=== PATIENT | female | born 1975 | race Two or more races ===

== ENCOUNTER 2016-08-20 21:07 | Emergency (ER) | payer SELFPAY ==
[~2016-08-20] VITALS: Ht 167.6 cm; Wt 83.9 kg
[2016-08-20 22:35] LABS: BASO % 1 % (0-3); EOS % 1 % (0-3); HEMATOCRIT 35.7 % (36.0-47.0); HEMOGLOBIN 11.9 g/dL (12.0-15.5); LYMPH # 1.8 x10^3/uL (1.0-4.8); LYMPH % 29 % (24-48); MEAN CORPUSCULAR HEMOGLOBIN 28 pg (25-35); MEAN CORPUSCULAR HGB CONC 33 g/dL (31-37); MEAN CORPUSCULAR VOLUME 84 fL (79-100); MONO % 9 % (0-9); NEUT % 61 % (31-73); PLATELET COUNT 230 x10^3/uL (140-400); RED BLOOD COUNT 4.27 x10^6/uL (3.50-5.40); RED CELL DISTRIBUTION WIDTH 14.3 % (11.5-14.5); WHITE BLOOD COUNT 6.3 x10^3/uL (4.0-11.0)
[2016-08-20 22:57] LABS: CALCIUM 9.2 mg/dL (8.5-10.1); CREATININE 0.9 mg/dL (0.6-1.0); GFR 68.7; POTASSIUM 3.9 mmol/L (3.5-5.1)
[2016-08-20 23:00] LABS: ALBUMIN 3.8 g/dL (3.4-5.0); DIRECT BILIRUBIN 0.1 mg/dL (0.0-0.2); MAGNESIUM 2.2 mg/dL (1.8-2.4); TOTAL BILIRUBIN 0.1 mg/dL (0.2-1.0); TOTAL PROTEIN 8.2 g/dL (6.4-8.2)
[2016-08-20 23:09] LABS: CKMB MASS 1.3 ng/mL (0.0-3.6)
--- NOTE | 2016-08-20 23:34 | PHYS DOC ---
Past Medical History Past Medical History: Anemia, GERD, Hypertension, Other Additional Past Medical Histor: gastritis, ESOPHAGEAL STRICTURE Past Surgical History: , Tubal ligation Alcohol Use: Rarely Drug Use: None Adult General Chief Complaint Chief Complaint: DIZZY/LIGHT HEADED HPI HPI Patient is a 41 year old female who presents with multiple complaints. Patient has been checking her blood pressure multiple times at home today because of her symptoms. Her blood pressure has been running high, systolics in the 170s to 180s. The patient is "dizzy". She has had some discomfort mostly since about 5:30 this evening that is characterized as a tight pressure in her epigastric area that goes up through the middle of her chest into both sides of her neck. She's had this off and on for about a week. She's had this same pain in the past when she stated she needed to have her esophagus dilated. She had this done as an outpatient at the [facility] about 2 years ago. She also complains that she's been doing a lot of belching and her abdomen has felt bloated lately. She does take omeprazole for her stomach acid. Patient takes labetalol 100 mg twice a day for hypertension. She usually takes it every morning and every evening. This morning when she got up she forgot to take it and did not take her dose until about 1:00. By then, she had been checking her blood pressure multiple times and found it to be running high. She has not taken her second dose of the day. She's been treated for about 4-1/2 years for hypertension with this medication. Patient is primary care is through [facility]. She has talked to them about needing esophageal endoscopy and dilatation and she states that it will be "at least 8 months" until she can get this done. Patient is wanting "unknown " from the ED stating that she needs to have it done sooner. Review of Systems Review of Systems Constitutional: Denies fever or chills , complains of dizziness and generalized weakness HENT: Denies nasal congestion or sore throat [] Respiratory: Denies cough or shortness of breath [] Cardiovascular: As in history of present illness for chest discomfort that does not sound cardiac GI: As in history of present illness, some nausea, occasional spitting up of saliva and liquids, no vomiting : Denies dysuria or hematuria [] Musculoskeletal: Denies back pain or joint pain [] Integument: Denies rash or skin lesions [] Neurologic: Denies headache, focal weakness or sensory changes [] Allergies Allergies Allergies Coded Allergies Type Severity Reaction Last Updated Verified Penicillins Allergy Intermediate rash 04/17/15 Yes Sulfa (Sulfonamide Antibiotics) Allergy Intermediate 04/17/15 Yes Physical Exam Physical Exam Constitutional: Well developed, well nourished, no acute distress, non-toxic appearance. [] HENT: Normocephalic, atraumatic, bilateral external ears normal, oropharynx moist, no oral exudates, nose normal. [] Eyes: PERRLA, EOMI, conjunctiva normal, no discharge. [] Neck: Normal range of motion, no tenderness, supple, no stridor. [] Cardiovascular:Heart rate regular rhythm, no murmur [] Lungs & Thorax: Bilateral breath sounds clear to auscultation [] Abdomen: Bowel sounds normal, soft, no tenderness, no masses, no pulsatile masses. [] Skin: Warm, dry, no erythema, no rash. [] Back: No tenderness, no CVA tenderness. [] Extremities: No tenderness, no cyanosis, no clubbing, ROM intact, no edema. [] Neurologic: Alert and oriented X 3, normal motor function, normal sensory function, no focal deficits noted. [] Psychologic: Affect normal, judgement normal, mood normal. [] Current Patient Data Vital Signs Vital Signs Date Time Temp Pulse Resp B/P (MAP) Pulse Ox O2 Delivery O2 Flow Rate FiO2 08/21/16 00:30 92 18 145/91 (109) 98 Room Air 08/20/16 21:33 98.4 98.4 Lab Values Laboratory Tests Test 08/20/16 21:16 08/20/16 22:27 POC Urine HCG, Qualitative Hcg negative (Negative) White Blood Count 6.3 x10^3/uL (4.0-11.0) Red Blood Count 4.27 x10^6/uL (3.50-5.40) Hemoglobin 11.9 g/dL (12.0-15.5) L Hematocrit 35.7 % (36.0-47.0) L Mean Corpuscular Volume 84 fL (79-100) Mean Corpuscular Hemoglobin 28 pg (25-35) Mean Corpuscular Hemoglobin Concent 33 g/dL (31-37) Red Cell Distribution Width 14.3 % (11.5-14.5) Platelet Count 230 x10^3/uL (140-400) Neutrophils (%) (Auto) 61 % (31-73) Lymphocytes (%) (Auto) 29 % (24-48) Monocytes (%) (Auto) 9 % (0-9) Eosinophils (%) (Auto) 1 % (0-3) Basophils (%) (Auto) 1 % (0-3) Neutrophils # (Auto) 3.8 x10^3uL (1.8-7.7) Lymphocytes # (Auto) 1.8 x10^3/uL (1.0-4.8) Monocytes # (Auto) 0.6 x10^3/uL (0.0-1.1) Eosinophils # (Auto) 0.0 x10^3/uL (0.0-0.7) Basophils # (Auto) 0.0 x10^3/uL (0.0-0.2) Sodium Level 139 mmol/L (136-145) Potassium Level 3.9 mmol/L (3.5-5.1) Chloride Level 104 mmol/L (98-107) Carbon Dioxide Level 26 mmol/L (21-32) Anion Gap 9 (6-14) Blood Urea Nitrogen 13 mg/dL (7-20) Creatinine 0.9 mg/dL (0.6-1.0) Estimated GFR (Cockcroft-Gault) 68.7 Glucose Level 115 mg/dL (70-99) H Calcium Level 9.2 mg/dL (8.5-10.1) Magnesium Level 2.2 mg/dL (1.8-2.4) Total Bilirubin 0.1 mg/dL (0.2-1.0) L Direct Bilirubin 0.1 mg/dL (0.0-0.2) Aspartate Amino Transferase (AST) 18 U/L (15-37) Alanine Aminotransferase (ALT) 21 U/L (14-59) Alkaline Phosphatase 82 U/L (46-116) Creatine Kinase 240 U/L (26-192) H Creatine Kinase MB (Mass) 1.3 ng/mL (0.0-3.6) Creatine Kinase MB Relative Index 0.5 % (0-4) Troponin I Quantitative < 0.017 ng/mL (0.000-0.055) RX-[id number]-I-Type Natriuretic Peptide 23 pg/mL (0-124) Total Protein 8.2 g/dL (6.4-8.2) Albumin 3.8 g/dL (3.4-5.0) Lipase 181 U/L (73-393) Laboratory Tests 08/20/16 22:27 Laboratory Tests 08/20/16 22:27 EKG EKG 12-lead EKG read by me. Sinus rhythm. Heart rate 103. There are no acute ST or T wave changes indicative of ischemia or infarction. No STEMI. 4 [] Radiology/Procedures Radiology/Procedures [] Course & Med Decision Making Course & Med Decision Making Pertinent Labs and Imaging studies reviewed. (See chart for details) 41-year-old female presents with multiple complaints. It sounds like what really prompted her visit was some chest discomfort that she relates to esophagus discomfort, she has had esophageal dilatation in the past for this same symptom. She is having no difficulty swallowing or handling her secretions in the emergency department. Labs, EKG unremarkable. I don't believe her symptoms are cardiac. Her blood pressure is running a bit high but she did not take her morning dose of labetalol when it was due and has not had her second dose yet today. I had her go ahead and take her second dose of labetalol. I discussed with the patient and her my recommendation to contact her primary care clinic and let them know that she is more symptomatic and see if she can be bumped up for endoscopy. See instructions for plan. [] Dragon Disclaimer Dragon Disclaimer This electronic medical record was generated, in whole or in part, using a voice recognition dictation system. Departure Departure Impression: Primary Impression: Epigastric pain Additional Impression: Pain of esophagus Disposition: HOME, SELF-CARE Condition: STABLE Referrals: NO PCP (PCP) Patient Instructions: Coleman's Esophagus Additional Instructions: Call your doctor's office tomorrow, let them know that you're having more symptoms and see if you can be seen sooner for endoscopy and treatment of your esophagus. Avoid any large pieces of meat, be sure you are chewing her food and swallowing only small amounts at a time. Problem Qualifiers DEE DEE GIL MD Aug 20, 2016 23:34
[2016-08-21 00:30] VITALS: BP 145/91
--- NOTE | 2016-08-21 16:04 | EKG ---
[facility] [address] [place] [address] Test Date: 2016-08-20 Test Time: 21:29:05 Pat Name: JC CARTWRIGHT Department: Room: Gender: F Linen Tech: : 1975 Requested By: DEE DEE GIL Order Number: [id number] Reading MD: Measurements Intervals [place] Rate: 103 P: 32 KS: 130 QRS: 31 QRSD: 72 T: 8 QT: 332 QTc: 437 Interpretive Statements SINUS TACHYCARDIA OTHERWISE NORMAL ECG RI6.01 Unconfirmed report No previous ECG available for comparison
== END 2016-08-21 00:36 | disposition home or self-care (01) ==
LOC: ER 21:07
DX: R10.13 Epigastric pain (principal); K22.8 Other specified diseases of esophagus; R11.0 Nausea; K21.9 Gastro-esophageal reflux disease without esophagitis; I10 Essential (primary) hypertension; Z88.0 Allergy status to penicillin; Z98.51 Tubal ligation status; Z79.899 Other long term (current) drug therapy; Z88.2 Allergy status to sulfonamides
CPT/HCPCS: 36415; 80048; 80076; 81025; 82553; 83690; 83735; 83880; 84484; 85027; 93005; 99285-25

== ENCOUNTER 2016-10-05 08:48 | Day surgery (SDC) | payer OTHER ==
[~2016-10-05] VITALS: Ht 162.6 cm; Wt 83.6 kg
[~2016-10-05 08:48] MED LIST: HYDROmorphone 2 MG/ML VIAL IV PRN; IBUP200T43 PO; IV RINGERS,LACTATED 1000ML 1,000 ML IV SCH; LABE100T3 PO; LIDOCAINE 1% 1 ML SYRINGE. ID PRN; MOME17SP NS; MORPHINE SULFATE 2 MG/ML DISP.SYRIN. IV PRN; OMEP40CA5 PO; ONDANSETRON PF 4 MG/2 ML VIAL. IV PRN; PROCHLORPERAZINE 10 MG/2 ML VIAL. IV PRN; fentaNYL PF VIAL 100 MCG/2 ML VIAL IV PRN
[2016-10-05] MEDS ORDERED: BUPIVACAINE-EPI 0.25%-1:200000 MPF 30 ML VIAL. ONE (10:53)
[2016-10-05] MEDS ORDERED: MIDAZOLAM HCL/PF 2 MG/2 ML VIAL. ONE (10:59)
[2016-10-05] MEDS ORDERED: fentaNYL PF VIAL 100 MCG/2 ML VIAL ONE ×2 (10:59→12:57)
--- NOTE | 2016-10-05 12:25 | RAD ---
Exam performed: Ultrasound-guided needle localization of a right breast lump and diagnostic right mammogram. History: Suspicious mass in the right breast. Date of service: 10/05/16. Comparison: Outside screen mammograms and right breast ultrasound from 09/08/16 and 09/18/16. Discussion: The procedure was obtained the patient and informed consent was obtained. Preliminary scanning demonstrates a well-defined suspicious nodule at 3:00 position, 2 cm from the nipple. The part was prepped and draped in the usual stripe fashion. 5 cc of 1% lidocaine was infiltrated in the skin and deeper tissues. Thereafter a 5 cm Kopan's needle was advanced to the premarked site up to nodule under direct ultrasound guidance. The wire was deployed and the needle was removed. The wire was then secured to the skin surface. The patient tolerated the procedure well and no immediate complications were encountered. Impression: 1. Technically successful wire localization of a suspicious right breast nodule. Diagnostic mammogram will be obtained. End impression. Diagnostic right mammogram: CC and MLO views of the right breast are obtained. The localization wire tip is seen in the vicinity of the nodule as marked on the images. The patient was sent to the OR in satisfactory position. Impression: 1. Satisfactory placement of a localization wire for subsequent lumpectomy. BI-RADS 4. Suspicious findings
[2016-10-05] MEDS ORDERED: PHENYLEPHRINE in 0.9% NACL PF 1 MG/10 ML DISP.SYRIN. IV ONE (12:31)
[2016-10-05] MEDS ORDERED: ONDANSETRON PF 4 MG/2 ML VIAL. ONE (12:34)
[2016-10-05] MEDS ORDERED: PROPOFOL 20 ML IV ONE (12:34)
[2016-10-05] MEDS ORDERED: LIDOCAINE 2% PF Vial for OR 5 ML VIAL. ONE (12:34)
[2016-10-05] MEDS ORDERED: DEXAMETHASONE SOD PHOS 20 MG/5 ML VIAL. ONE (12:34)
--- NOTE | 2016-10-05 12:41 | PDOC4 ---
Operative Note Operative Note Date: 10/05/2016 Preoperative diagnosis: Right breast mass Postoperative diagnosis: Same Procedure: Needle localized right breast biopsy Surgeon: Martell Specimen: Right breast biopsy Dictation: Patient is a 41-year-old female recently had bilateral mammograms was found to have a abnormal mammogram of the right breast. Procedure of needle localized right breast biopsy was explained to the patient in detail was benefits were also discussed including bleeding and infection alternatives to this procedure also discussed with the patient seemed understanding gave both verbal and written consent to have the procedure performed. The operating room after her needle localization of the right breast placed in the supine position general anesthesia was initiated once patient was asleep her right breast was prepped and draped usual sterile fashion using ChloraPrep. Area around the needle on the breast was injected with quarter percent Marcaine with epinephrine and incision made with a 15 blade scalpel was carried down through the subtendinous tissue that try to dry hemostasis the biopsy was taken and 2 pieces the more superficial specimen contained the needle a deeper specimen was also taken. Hemostasis in the wound was deemed to be appropriate and the wound was closed in 2 layers deep layer running 3-0 Vicryl and the skin was approximate 4 septic Monocryl mass all Steri-Strips 4 x 4's Medipore tape were applied as dressing. Patient was awakened and extubated in the operative room taken to recovery in stable condition all sponge instrument counts listed as correct estimate blood loss 20 mL. RAFAEL ESCOBAR MD Oct 05, 2016 12:41
--- NOTE | 2016-10-05 12:42 | DISCH ---
DISCHARGE INSTRUCTIONS Condition on Discharge Condition on Discharge: Stable Activity After Discharge Activity Instructions for Disc: Avoid exertion Diet after Discharge Diet after Discharge: Regular Wound Incision Care Other wound/incision instructi: May shower in 24 hours Contacting the after DC Call your doctor for: If your condition worsens Follow-Up Follow up with: Dr Escobar in 2 weeks RAFAEL ESCOBAR MD Oct 05, 2016 12:42
[2016-10-05] MEDS ORDERED: SEVOFLURANE 31 TO 60 MINUTES. IH ONE (12:46)
[2016-10-05] MEDS ORDERED: OXYC-323 PO (12:52)
[2016-10-05] MEDS ORDERED: oxyCODONE/APAP 5/325 1 TAB TABLET PO ONE (13:15)
[2016-10-05 14:15] VITALS: BP 135/97
--- NOTE | 2016-10-05 14:52 | RAD ---
Exam performed: Tissue specimen radiograph. History: Lumpectomy specimen. Date of service: 10/05/14. Comparison: Preoperative diagnostic mammogram from earlier today. Findings and impression:: A tissue specimen radiograph was obtained which demonstrates the localization wire in the tissue specimen. A second tissue specimen was seen which does not contain the localization wire. The localized nodule is perhaps in the periphery of this specimen. Dr. Moura was notified of the findings.
== END 2016-10-05 14:42 | disposition home or self-care (01) ==
LOC: SURG 08:48
PROVIDERS: ATTEND Surgery
DX: N63 Unspecified lump in breast (principal); I10 Essential (primary) hypertension; E66.9 Obesity, unspecified; D64.9 Anemia, unspecified; Z88.0 Allergy status to penicillin; Z68.41 Body mass index [BMI] 40.0-44.9, adult; Z98.51 Tubal ligation status; Z88.2 Allergy status to sulfonamides
CPT/HCPCS: 19083; 19125; 76098; 76942; C1769; G0206; J1100; J1956; J2250; J2370; J2405; J2704; J3010; 77065; J2001

== ENCOUNTER → 2016-11-16 | Day surgery (SDC) | payer OTHER ==
[~2016-11-16] MED LIST changes: -LIDOCAINE 1% 1 ML SYRINGE. ID PRN; +LIDOCAINE 1% PF 2 ML VIAL. ID PRN; +LIDOCAINE 2% PF Vial for OR 5 ML VIAL. ONE; +MIDAZOLAM HCL/PF 2 MG/2 ML VIAL. IV PRN; +OXYC-323 PO; +PROPOFOL 40 ML IV ONE
[2016-11-16 11:49] VITALS: BP 144/86
--- NOTE | 2016-11-17 16:09 | PATHOLOGY ---
PATHOLOGY REPORT * * * * * * * * FINAL DIAGNOSIS: A. Small intestinal mucosa, "small bowel biopsy": - No obvious diagnostic changes. - There is no evidence of acute cryptitis, granulomas, adenomatous change, or malignancy. B. Gastric biopsy (biopsy gastritis): - Mild chronic reactive gastropathy. - The immunoperoxidase stains for Helicobacter pylori is negative. C. 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 - There is no evidence of dysplasia or malignancy. D. Squamous mucosa, "mid esophagus biopsy": - Mild esophagitis with reactive squamous mucosa. - There is no evidence of goblet cell metaplasia, dysplasia, or malignancy. E. Small intestinal mucosa, "terminal ileum biopsy": - No diagnostic changes. - There is no evidence of acute cryptitis, granulomas, adenomatous change, or malignancy. F. Colonic mucosa, "random colon biopsies": - No diagnostic changes. - There is no evidence of acute cryptitis, granulomas, adenomatous change, or malignancy. (SHA:; 11/17/2016) REPORT ELECTRONICALLY SIGNED BY: Shaggy Purdy M.D. DATE/TIME: 11/17/2016 16:09 * * * * * * * * GROSS PATHOLOGY: A. Received in formalin labeled "Monique Paez, small bowel biopsy," are 4 segments of weiner soft tissue measuring 1.5 x 0.3 x 0.3 cm in aggregate dimensions and ranging from 0.3 to 0.4 cm in maximum dimension. The specimen is submitted entirely in cassette A1. B. Received in formalin labeled "Monique Paez, BX gastric antrum," is a segment of weiner soft tissue measuring 0.5 cm in maximum dimension. The specimen is submitted entirely in cassette B1. C. Received in formalin labeled "Monique Paez, distal esophageal BX," is a segment of weiner soft tissue measuring 0.4 cm in maximum dimension. The specimen is submitted entirely in cassette C1. D. Received in formalin labeled "Monique Paez, mid esophagus BX," are 2 segments of weiner soft tissue measuring 0.7 x 0.2 x 0.2 cm in aggregate dimensions and ranging from 0.3 to 0.3 cm in maximum dimension. The specimen is submitted entirely in cassette E1. E. Received in formalin labeled "Monique Paez, terminal ileum BX," is a segment of weiner soft tissue measuring 0.3 cm in maximum dimension. The specimen is submitted entirely in cassette E1. F. Received in formalin labeled "anterior Philippe, random colon BX's," are 6 segments of weiner soft tissue measuring 1.5-1.1 x 0.2 cm in aggregate dimensions and ranging from 0.3 to 0.4 cm in maximum dimension. The specimen is submitted entirely in cassette F1. (TSD; 11/16/2016) INITIAL CPT CODE(S): A; 83219 B; 29797, 91813 C; 41936 D; 25803 E; 57192 F; 24554 Professional services [place] [facility] [place] [address] Technical services performed by [facility] at [address] [place] [address]. SPECIMEN(S) RECEIVED: A.Small bowel biopsy B.Biopsy gastric antrum C.Biopsy distal esophagus D.Mid esophageal biopsy E.Terminal ileum biopsy F.Random colon biopsy CLINICAL HISTORY: History of Coleman's, dysphagia, abdominal pain; f/u Coleman's PATIENT: MONIQUE PAEZ /AGE: 3 1975 (Age: 41) PATIENT #: [id number] ALT CASE #: SPECIMEN COLLECTION DATE: 11/16/2016 SPECIMEN RECEIVED DATE: 11/16/2016 [facility] - [address] [place] [address] - PHONE: [phone] * * * END OF REPORT * * *
== END | disposition home or self-care (01) ==
LOC: ENDOS 09:16
PROVIDERS: ATTEND Internal Medicine Gastroenterology
DX: Z12.11 Encounter for screening for malignant neoplasm of colon (principal); K64.0 First degree hemorrhoids; Z86.69 Personal history of other diseases of the nervous system and sense organs; I10 Essential (primary) hypertension; E66.9 Obesity, unspecified; Z98.51 Tubal ligation status; Z88.2 Allergy status to sulfonamides; Z88.0 Allergy status to penicillin
CPT/HCPCS: 43239; 43450; 45380; 88305; 88342; J2704; J2001

== ENCOUNTER → 2016-11-27 | Outpatient (CLI) | payer OTHER ==
[2016-11-16 11:49] VITALS: BP 144/86
[~2016-11-27] MED LIST changes: -HYDROmorphone 2 MG/ML VIAL IV PRN; -IV RINGERS,LACTATED 1000ML 1,000 ML IV SCH; -LIDOCAINE 1% PF 2 ML VIAL. ID PRN; -LIDOCAINE 2% PF Vial for OR 5 ML VIAL. ONE; -MIDAZOLAM HCL/PF 2 MG/2 ML VIAL. IV PRN; -MORPHINE SULFATE 2 MG/ML DISP.SYRIN. IV PRN; -ONDANSETRON PF 4 MG/2 ML VIAL. IV PRN; -PROCHLORPERAZINE 10 MG/2 ML VIAL. IV PRN; -PROPOFOL 40 ML IV ONE; -fentaNYL PF VIAL 100 MCG/2 ML VIAL IV PRN
--- NOTE | 2016-11-27 11:21 | RAD ---
INDICATION: Abdominal pain. COMPARISON: None. TECHNIQUE: Grayscale and color ultrasound images obtained through the abdomen. FINDINGS: Aorta/IVC: Partially visualized without gross aneurysm. Pancreas: Only partially seen secondary to overlying bowel gas obscuring. Liver: Mildly echogenic. Gallbladder: No definite stones or wall thickening. Common Bile Duct: Not dilated. Right Kidney: No hydronephrosis. IMPRESSION: No definite bile duct dilation. Liver is mildly echogenic. Nonspecific but can be seen with fatty infiltration.
== END | disposition home or self-care (01) ==
LOC: US 15:57
PROVIDERS: ATTEND Internal Medicine Gastroenterology
DX: K76.0 Fatty (change of) liver, not elsewhere classified (principal)
CPT/HCPCS: 76705

== ENCOUNTER → 2016-11-28 | Outpatient (CLI) | payer OTHER ==
[2016-11-16 11:49] VITALS: BP 144/86
[~2016-11-28] VITALS: Ht 157.5 cm; Wt 84.4 kg
[~2016-11-28] MED LIST changes: +SINCALIDE 1.69 MCG in IV NORMAL SALINE 50ML 30 ML IV ONE
--- NOTE | 2016-11-28 11:35 | RAD ---
Radionuclide hepatobiliary scan with gallbladder ejection fraction, 11/28/2016: History: Abdominal pain with nausea and vomiting Following IV injection of 5.5 mCi of technetium 99m Choletec there was prompt uptake of the radionuclide from the blood stream by the liver. Activity is present in the gallbladder and bile ducts at 15 minutes. Small bowel activity develops at 35 minutes. Additional imaging of the gallbladder was performed following IV injection of 1.7 mcg of cholecystokinin. The patient became nauseous and complained of pain following the cholecystokinin injection. The gallbladder ejection fraction was calculated at 32%. 30-50% is considered be the borderline low range. IMPRESSION: 1. No evidence of cystic duct or common bile duct obstruction. 2. The gallbladder ejection fraction is 32%.
== END | disposition home or self-care (01) ==
LOC: NM 08:00
PROVIDERS: ATTEND Internal Medicine Gastroenterology
DX: R10.11 Right upper quadrant pain (principal); R11.2 Nausea with vomiting, unspecified; I10 Essential (primary) hypertension
CPT/HCPCS: 78226; 96374; 96375; A9537; J2805

== ENCOUNTER 2017-04-06 18:42 | Emergency (ER) | payer OTHER ==
[2017-04-06 19:11] LABS: URINE HCG POC HCG NEGATIVE (Negative)
[2017-04-06 19:12] LABS: BILIRUBIN,URINE NEGATIVE (NEG); CLARITY,URINE CLEAR; COLOR,URINE YELLOW; GLUCOSE,URINE NEGATIVE (NEG); NITRITE,URINE NEGATIVE (NEG); PROTEIN,URINE NEGATIVE (NEG-TRACE); UROBILINOGEN,URINE 0.2 mg/dL (0.2 mg/dL)
[2017-04-06 19:14] LABS: BASO % 0 % (0-3); EOS % 0 % (0-3); HEMATOCRIT 28.7 % (36.0-47.0); HEMOGLOBIN 9.2 g/dL (12.0-15.5); LYMPH % 10 % (24-48); MEAN CORPUSCULAR HEMOGLOBIN 23 pg (25-35); MEAN CORPUSCULAR HGB CONC 32 g/dL (31-37); MEAN CORPUSCULAR VOLUME 71 fL (79-100); MONO # 0.1 x10^3/uL (0.0-1.1); MONO % 1 % (0-9); NEUT # 8.6 x10^3uL (1.8-7.7); NEUT % 88 % (31-73); PLATELET COUNT 265 x10^3/uL (140-400); RED BLOOD COUNT 4.06 x10^6/uL (3.50-5.40); RED CELL DISTRIBUTION WIDTH 21.6 % (11.5-14.5); WHITE BLOOD COUNT 9.7 x10^3/uL (4.0-11.0)
[2017-04-06] MEDS: HYDROcodone/APAP 5/325MG 1 TAB TABLET PO (19:17)
[2017-04-06] MEDS: ONDANSETRON PF 4 MG/2 ML VIAL. IV (19:17)
[2017-04-06] MEDS: KETOROLAC 30 MG/ML INJ. IV (19:17)
[2017-04-06] MEDS: IV NORMAL SALINE 1000ML BAG 1,000 ML IV ×2 (19:18→20:43)
[2017-04-06 19:21] LABS: BACTERIA,URINE FEW /HPF (0-FEW); RBC,URINE 0 /HPF (0-2); SQUAMOUS EPITHELIAL CELL,UR OCC /LPF
[2017-04-06 19:25] LABS: ANION GAP 11 (6-14); BLOOD UREA NITROGEN 13 mg/dL (7-20); BUN/CREATININE RATIO 12 (6-20); CALCIUM 8.9 mg/dL (8.5-10.1); CARBON DIOXIDE 24 mmol/L (21-32); CHLORIDE 103 mmol/L (98-107); CREATININE 1.1 mg/dL (0.6-1.0); GFR 54.5; GLUCOSE 103 mg/dL (70-99); SODIUM 138 mmol/L (136-145)
[2017-04-06] MEDS ORDERED: IOHEXOL 300 MG/ML 100ML VIAL. IV (19:30)
[2017-04-06] MEDS ORDERED: CONTRAST GIVEN MC (19:30)
[2017-04-06 19:31] LABS: ALBUMIN 3.5 g/dL (3.4-5.0); ALBUMIN/GLOBULIN RATIO 0.8 (1.0-1.7); ALK PHOS 93 U/L (46-116); ALT (SGPT) 25 U/L (14-59); AST (SGOT) 16 U/L (15-37); CREATINE KINASE 182 U/L (26-192); LIPASE 202 U/L (73-393); MAGNESIUM 1.6 mg/dL (1.8-2.4); TOTAL BILIRUBIN 0.1 mg/dL (0.2-1.0); TOTAL PROTEIN 7.9 g/dL (6.4-8.2)
[2017-04-06 19:35] LABS: INFLUENZA A PATIENT NEGATIVE (NEGATIVE); INFLUENZA B PATIENT NEGATIVE (NEGATIVE); OBC FLU VALID
[2017-04-06 19:37] LABS: ADD MAN DIFF? YES
[2017-04-06 20:37] LABS: % BANDS 3 % (0-9); % EOS 1 % (0-5); % LYMPHS 13 % (24-48); % MONOS 2 % (0-10); % SEGS 81 % (35-66)
[2017-04-06 20:39] LABS: ANISOCYTOSIS MOD; HYPOCHROMIA SLIGHT; MICROCYTOSIS SLIGHT; PLT ESTIMATE ADEQUATE (ADEQUATE)
[2017-04-06 21:04] LABS: LACTIC ACID 1.6 mmol/L (0.4-2.0)
[2017-04-06 21:05] LABS: THYROID STIM HORMONE (TSH) 1.064 uIU/mL (0.358-3.74)
== END 2017-04-06 23:22 | disposition home or self-care (01) ==
LOC: ER 18:42
DX: N39.0 Urinary tract infection, site not specified (principal); K21.9 Gastro-esophageal reflux disease without esophagitis; I10 Essential (primary) hypertension; Z88.2 Allergy status to sulfonamides; Z88.0 Allergy status to penicillin; Z98.51 Tubal ligation status; Z90.49 Acquired absence of other specified parts of digestive tract; Z88.1 Allergy status to other antibiotic agents
CPT/HCPCS: 36415; 74177; 76830; 76856; 80053; 81001; 81025; 82550; 83605; 83690; 83735; 84443; 85007; 85025; 87086; 87804; 87804-59; 93005; 96361; 96374; 96375; 99285-25; J1885; J2405; J7030

== ENCOUNTER 2017-10-02 08:34 | Emergency (ER) | payer SELFPAY ==
[~2017-10-02] VITALS: Ht 157.5 cm; Wt 83.5 kg
[~2017-10-02 08:34] MED LIST changes: +CIPR250T PO; +HYDR-971 PO; -IBUP200T43 PO; +IBUP200T44 PO; -LABE100T3 PO; +LABE100T5 PO; +ONDA4TAB10 PO; -SINCALIDE 1.69 MCG in IV NORMAL SALINE 50ML 30 ML IV ONE
[2017-10-02] MEDS ORDERED: IV NORMAL SALINE 1000ML BAG 1,000 ML IV SCH (08:50)
--- NOTE | 2017-10-02 08:55 | PHYS DOC ---
Past Medical History Past Medical History: Anemia, GERD, Hypertension, Other Additional Past Medical Histor: gastritis, ESOPHAGEAL STRICTURE Past Surgical History: , Tubal ligation Alcohol Use: Rarely Drug Use: None Adult General Chief Complaint Chief Complaint: ABDOMINAL PAIN HPI HPI Patient is a 42-year-old female who presents to the emergency department for evaluation. She states for the past 3 days, she has had intermittent left upper abdominal discomfort, along with some urinary frequency and dysuria. She has had subjective fevers, and has had nausea, but no vomiting. She denies any dizziness or lightheadedness. She has not had any diarrhea. She reports a mild headache, similar to prior headaches she has had in the past with minor illnesses. She denies any chest pain or shortness of breath, dizziness, lightheadedness, numbness, weakness. Eating does not affect her symptoms. Other and urination worsen her symptoms, there are no alleviating or exacerbating factors to her symptoms. Review of Systems Review of Systems Constitutional: Denies weakness or chills [] Eyes: Denies change in visual acuity, redness, or eye pain [] HENT: Denies nasal congestion or sore throat [] Respiratory: Denies cough or shortness of breath [] Cardiovascular: The patient denies any shortness of breath, chest pain, palpitations, or orthopnea [] GI: Denies vomiting, bloody stools or diarrhea [] : Denies dysuria or hematuria [] Musculoskeletal: Denies back pain or joint pain [] Integument: Denies rash or skin lesions [] Neurologic: Denies current headache, focal weakness or sensory changes [] Endocrine: Denies polyuria or polydipsia [] All other systems were reviewed and found to be within normal limits, except as documented in this note. Current Medications Current Medications Current Medications Medications (Trade) Dose Ordered Sig/Gamal Start Time Stop Time Status Last Admin Dose Admin Info (CONTRAST GIVEN -- Rx MONITORING) 1 each PRN DAILY PRN 10/02/17 10:30 10/04/17 10:29 Iohexol (Omnipaque 300 Mg/ml) 75 ml 1X ONCE 10/02/17 10:30 10/02/17 10:31 DC 10/02/17 10:48 75 ML Ketorolac Tromethamine (Toradol 30mg Vial) 30 mg 1X ONCE 10/02/17 09:00 10/02/17 09:01 DC 10/02/17 09:12 30 MG Sodium Chloride 1,000 ml @ 1,000 mls/hr Q1H 10/02/17 08:50 10/02/17 09:49 DC 10/02/17 09:12 1,000 MLS/HR Allergies Allergies Allergies Coded Allergies Type Severity Reaction Last Updated Verified Penicillins Allergy Intermediate WELTS/ITCHY 12/14/16 Yes Sulfa (Sulfonamide Antibiotics) Allergy Intermediate COULD NOT BREATH 12/14/16 Yes amoxicillin Allergy Intermediate 04/06/17 Yes Physical Exam Physical Exam PHYSICAL EXAM: CONSTITUTIONAL: Well developed, well nourished HEAD: normocephalic, atraumatic EENT: PERRL, EOMI. Conjunctivae normal color, sclerae non-icteric; moist mucous membranes. NECK: Supple, non-tender; no meningismus. LUNGS: Lungs CTA, breathing even and unlabored. Normal air movement. HEART: Regular rate and rhythm, no murmur CHEST: No deformity; non-tender ABDOMEN: The abdomen is soft, there is mild left mid and lower abdominal tenderness to palpation, without rebound or guarding. The left upper quadrant, epigastric and right upper quadrant, as well as the right lower quadrant, are all non-tender, no masses or bruits. EXTREM: Normal ROM; no deformity, no calf tenderness. Normal pulses palpable in all extremities. There is no pedal edema. SKIN: No rash; no diaphoresis NEURO: Alert; normal speech and cognition; CN's grossly intact; strength grossly intact without focal deficit. BACK: No CVA TTP. Current Patient Data Vital Signs Vital Signs Date Time Temp Pulse Resp B/P (MAP) Pulse Ox O2 Delivery O2 Flow Rate FiO2 10/02/17 10:39 88 18 145/80 (101) 99 Room Air 10/02/17 08:46 97.3 97.3 Lab Values Laboratory Tests Test 10/02/17 08:40 10/02/17 08:45 10/02/17 08:55 Urine Collection Type Unknown Urine Color Yellow Urine Clarity Clear Urine pH 5.5 Urine Specific [place] 1.015 Urine Protein Negative mg/dL (NEG-TRACE) Urine Glucose (UA) Negative mg/dL (NEG) Urine Ketones (Stick) Negative mg/dL (NEG) Urine Blood Negative (NEG) Urine Nitrite Negative (NEG) Urine Bilirubin Negative (NEG) Urine Urobilinogen Dipstick 0.2 mg/dL (0.2 mg/dL) Urine Leukocyte Esterase Negative (NEG) Urine RBC 0 /HPF (0-2) Urine WBC Occ /HPF (0-4) Urine Squamous Epithelial Cells Few /LPF Urine Bacteria 0 /HPF (0-FEW) Urine Mucus Mod /LPF POC Urine HCG, Qualitative Hcg negative (Negative) White Blood Count 6.9 x10^3/uL (4.0-11.0) Red Blood Count 4.47 x10^6/uL (3.50-5.40) Hemoglobin 10.7 g/dL (12.0-15.5) L Hematocrit 33.2 % (36.0-47.0) L Mean Corpuscular Volume 74 fL (79-100) L Mean Corpuscular Hemoglobin 24 pg (25-35) L Mean Corpuscular Hemoglobin Concent 32 g/dL (31-37) Red Cell Distribution Width 18.1 % (11.5-14.5) H Platelet Count 297 x10^3/uL (140-400) Neutrophils (%) (Auto) 62 % (31-73) Lymphocytes (%) (Auto) 26 % (24-48) Monocytes (%) (Auto) 10 % (0-9) H Eosinophils (%) (Auto) 1 % (0-3) Basophils (%) (Auto) 1 % (0-3) Neutrophils # (Auto) 4.3 x10^3uL (1.8-7.7) Lymphocytes # (Auto) 1.8 x10^3/uL (1.0-4.8) Monocytes # (Auto) 0.7 x10^3/uL (0.0-1.1) Eosinophils # (Auto) 0.1 x10^3/uL (0.0-0.7) Basophils # (Auto) 0.0 x10^3/uL (0.0-0.2) Sodium Level 133 mmol/L (136-145) L Potassium Level 4.1 mmol/L (3.5-5.1) Chloride Level 101 mmol/L (98-107) Carbon Dioxide Level 27 mmol/L (21-32) Anion Gap 5 (6-14) L Blood Urea Nitrogen 10 mg/dL (7-20) Creatinine 1.0 mg/dL (0.6-1.0) Estimated GFR (Cockcroft-Gault) 60.5 BUN/Creatinine Ratio 10 (6-20) Glucose Level 101 mg/dL (70-99) H Calcium Level 8.8 mg/dL (8.5-10.1) Total Bilirubin 0.4 mg/dL (0.2-1.0) Aspartate Amino Transferase (AST) 18 U/L (15-37) Alanine Aminotransferase (ALT) 28 U/L (14-59) Alkaline Phosphatase 88 U/L (46-116) Total Protein 8.5 g/dL (6.4-8.2) H Albumin 3.9 g/dL (3.4-5.0) Albumin/Globulin Ratio 0.8 (1.0-1.7) L Lipase 158 U/L (73-393) Laboratory Tests 10/02/17 08:55 Laboratory Tests 10/02/17 08:55 EKG EKG [Normal sinus rhythm with a normal rate, normal axis, normal intervals, there are no acute ischemic ST/T changes.] Radiology/Procedures Radiology/Procedures [PROCEDURE: CT ABD PELV W/ IV CONTRST ONLY CT ABD PELV W/ IV CONTRST ONLY dated 10/02/2017 10:12 AM Indication: Pain.LLQ ABD PAIN OMNI 300 75ML. Comparison: 04/06/2017 Technique: Contiguous axial imaging the abdomen and pelvis performed after the intravenous administration of 75 cc Omnipaque 300. One or more of the following individualized dose reduction techniques were utilized for this examination: 1. Automated exposure control 2. Adjustment of the mA and/or kV according to patient size 3. Use of iterative reconstruction technique Findings: Limited images of lung bases are clear. Heart size within normal limits. No pleural or pericardial effusion. Liver, spleen, pancreas, adrenal glands, kidneys are unremarkable. No hydronephrosis. Gallbladder surgically absent. Unopacified GI tract normal in caliber and contour. No focal bowel wall thickening. No inflammatory stranding in the mesentery. The appendix is normal in caliber. No ascites or lymphadenopathy. Abdominal aorta normal in caliber.There are a few calcified mesenteric lymph nodes, unchanged Images of pelvis show nondistended urinary bladder. Uterus and adnexa are unremarkable. No free fluid or lymphadenopathy. Bone windows show no acute findings. Mild multilevel spondylosis. There is grade 1 spondylolisthesis and bilateral spondylolysis at L4-L5. IMPRESSION: 1. No acute abnormality of abdomen or pelvis. Normal appendix. 2. Grade 1 spondylolisthesis and bilateral spondylolysis at L4-L5.] Course & Med Decision Making Course & Med Decision Making Pertinent Labs and Imaging studies reviewed. (See chart for details) []11:45 AM: The patient's condition remained stable. I discussed test results with the patient, the need for close follow-up with GI for further evaluation and return precautions. The patient will be started on a therapeutic trial of a PPI. Dragon Disclaimer Dragon Disclaimer This electronic medical record was generated, in whole or in part, using a voice recognition dictation system. Departure Departure Impression: Primary Impression: Upper abdominal pain Disposition: 01 HOME, SELF-CARE Condition: STABLE Referrals: VERA CRAFT DO (PCP) BRANDAN BURGOS MD Patient Instructions: Abdominal Pain, Gastrin Scripts Pantoprazole Sodium (PROTONIX) 20 Mg Tablet.dr 1 TAB PO DAILY, #30 TAB Prov: NANCI CHAPMAN MD 10/02/17 NANCI CHAPMAN MD Oct 02, 2017 08:55
[2017-10-02] MEDS ORDERED: KETOROLAC 30 MG/ML VIAL. IV ONE (09:00)
[2017-10-02 09:07] LABS: BILIRUBIN,URINE NEGATIVE (NEG); CLARITY,URINE CLEAR; COLOR,URINE YELLOW; NITRITE,URINE NEGATIVE (NEG); PH,URINE 5.5; PROTEIN,URINE NEGATIVE (NEG-TRACE); UROBILINOGEN,URINE 0.2 mg/dL (0.2 mg/dL)
[2017-10-02 09:12] LABS: BASO % 1 % (0-3); EOS # 0.1 x10^3/uL (0.0-0.7); EOS % 1 % (0-3); HEMATOCRIT 33.2 % (36.0-47.0); HEMOGLOBIN 10.7 g/dL (12.0-15.5); LYMPH # 1.8 x10^3/uL (1.0-4.8); LYMPH % 26 % (24-48); MEAN CORPUSCULAR HEMOGLOBIN 24 pg (25-35); MEAN CORPUSCULAR HGB CONC 32 g/dL (31-37); MEAN CORPUSCULAR VOLUME 74 fL (79-100); MONO # 0.7 x10^3/uL (0.0-1.1); MONO % 10 % (0-9); NEUT # 4.3 x10^3uL (1.8-7.7); NEUT % 62 % (31-73); PLATELET COUNT 297 x10^3/uL (140-400); RED BLOOD COUNT 4.47 x10^6/uL (3.50-5.40); RED CELL DISTRIBUTION WIDTH 18.1 % (11.5-14.5); WHITE BLOOD COUNT 6.9 x10^3/uL (4.0-11.0)
[2017-10-02 09:16] LABS: SQUAMOUS EPITHELIAL CELL,UR FEW /LPF; WBC,URINE OCC /HPF (0-4)
[2017-10-02 09:17] LABS: BACTERIA,URINE 0 /HPF (0-FEW); RBC,URINE 0 /HPF (0-2)
[2017-10-02 09:25] LABS: CALCIUM 8.8 mg/dL (8.5-10.1); GFR 60.5; POTASSIUM 4.1 mmol/L (3.5-5.1)
[2017-10-02 09:28] LABS: ALBUMIN 3.9 g/dL (3.4-5.0); ALBUMIN/GLOBULIN RATIO 0.8 (1.0-1.7); TOTAL BILIRUBIN 0.4 mg/dL (0.2-1.0); TOTAL PROTEIN 8.5 g/dL (6.4-8.2)
[2017-10-02] MEDS ORDERED: IOHEXOL 300 MG/ML 100ML VIAL. IV ONE (10:30)
[2017-10-02] MEDS ORDERED: CONTRAST GIVEN. MC PRN (10:30)
--- NOTE | 2017-10-02 11:15 | RAD ---
CT ABD PELV W/ IV CONTRST ONLY dated 10/02/2017 10:12 AM Indication: Pain.LLQ ABD PAIN OMNI 300 75ML. Comparison: 04/06/2017 Technique: Contiguous axial imaging the abdomen and pelvis performed after the intravenous administration of 75 cc Omnipaque 300. One or more of the following individualized dose reduction techniques were utilized for this examination: 1. Automated exposure control 2. Adjustment of the mA and/or kV according to patient size 3. Use of iterative reconstruction technique Findings: Limited images of lung bases are clear. Heart size within normal limits. No pleural or pericardial effusion. Liver, spleen, pancreas, adrenal glands, kidneys are unremarkable. No hydronephrosis. Gallbladder surgically absent. Unopacified GI tract normal in caliber and contour. No focal bowel wall thickening. No inflammatory stranding in the mesentery. The appendix is normal in caliber. No ascites or lymphadenopathy. Abdominal aorta normal in caliber.There are a few calcified mesenteric lymph nodes, unchanged Images of pelvis show nondistended urinary bladder. Uterus and adnexa are unremarkable. No free fluid or lymphadenopathy. Bone windows show no acute findings. Mild multilevel spondylosis. There is grade 1 spondylolisthesis and bilateral spondylolysis at L4-L5. IMPRESSION: 1. No acute abnormality of abdomen or pelvis. Normal appendix. 2. Grade 1 spondylolisthesis and bilateral spondylolysis at L4-L5. Electronically signed by: Sonido Alvarado MD (10/02/2017 11:11 AM) [id number]
[2017-10-02] MEDS ORDERED: PANT20TA2 PO (11:50)
[2017-10-02 12:30] VITALS: BP 134/81
--- NOTE | 2017-10-02 13:09 | EKG ---
[facility] [address] [place] [address] Test Date: 2017-10-02 Test Time: 09:31:29 Pat Name: JC CARTWRIGHT Department: Room: Gender: F Service Order Taker: : 1975 Requested By: NANCI CHAPMAN Order Number: [id number] Reading MD: Santos Gary MD Measurements Intervals [place] Rate: 91 P: 114 [place]: 128 QRS: 45 QRSD: 76 T: 20 QT: 342 QTc: 427 Interpretive Statements SINUS RHYTHM Electronically Signed On 10-03-2017 12:22:44 CDT by Santos Gary MD
== END 2017-10-02 12:40 | disposition home or self-care (01) ==
LOC: ER 08:34
DX: R10.12 Left upper quadrant pain (principal); R10.32 Left lower quadrant pain; R10.13 Epigastric pain; R10.11 Right upper quadrant pain; R50.9 Fever, unspecified; R11.0 Nausea; R30.0 Dysuria; R35.0 Frequency of micturition; K21.9 Gastro-esophageal reflux disease without esophagitis; I10 Essential (primary) hypertension; Z98.890 Other specified postprocedural states; Z98.51 Tubal ligation status; Z88.0 Allergy status to penicillin; Z88.1 Allergy status to other antibiotic agents; Z88.2 Allergy status to sulfonamides
CPT/HCPCS: 36415; 74177; 80053; 81001; 81025; 83690; 85025; 93005; 96374; 99285; J1885; J7030; Q9967

== ENCOUNTER → 2019-07-17 | Outpatient (CLI) | payer OTHER ==
[2019-03-28 09:20] VITALS: BP 121/74
[~2019-07-17] MED LIST changes: +DEXL30CA PO; +FERR-36 PO; +HYDR-3164 PO; -HYDR-971 PO; +LABE200T4 PO; +LISI1TAB19 PO; +OMEP40CA45 PO; -OMEP40CA5 PO; -OXYC-323 PO; +OXYC1TAB15 PO; +PANT20TA2 PO; +PANT40TA77 PO
--- NOTE | 2019-07-18 17:07 | PATHOLOGY ---
[facility] Accession Number: [id number] . 01 Material submitted: . breast - RIGHT BREAST TISSUE 3:30 2CMFN. Modifiers: right . 01 Clinical history: . Right breast mass. . 02 Diagnosis: Breast tissue, right breast mass at 3:30 needle biopsies: - Fibroadenoma. LBQ 07/18/2019 1450 Local . 02 Comment: There is no evidence of malignancy. (JPM/db; 07/18/2019) . 02 Electronically signed: . Leobardo Whitman MD, Pathologist NPI- [id number] . 01 Gross description: . Received in formalin labeled "Monique Soto, right breast 330, 2 cm FN" is a 1.8 x 0.6 x 0.2 cm aggregate of yellow-weiner soft tissue cores. The specimen is submitted entirely in cassette A1-A3. The specimen is removed from the patient at 0952 and placed in formalin at 0955 on 07/17/2019. The specimen is removed from formalin at 2150 on 07/17/2019. ([facility] [place] 07/17/2019[place] [facility] 07/17/2019 1648 Local . 02 Pathologist provided ICD-10: D24.1 . 02 CPT . 030828 Specimen Comment: A courtesy copy of this report has been sent to [phone] Specimen Comment: Report sent to Performed at: 01 [facility] [address], [place] [id number] MD Rodger Duckworth MD Phone: [phone] Performed at: 02 [facility] [address] [place], [place] [id number] MD Leobardo Whitman MD Phone: [phone]
--- NOTE | 2019-07-18 17:43 | RAD ---
DATE: 07/17/2019 9:55 AM EXAM: DIGITAL DIAGNOSTIC RT, US GUID NDL PLACE/ASPI/BX HISTORY: 44-year-old woman with the mass in the medial right breast recommended for ultrasound-guided core needle biopsy. . COMPARISON: Right breast ultrasound of 07/03/2019 performed at diagnostic [facility], [place] TECHNIQUE AND FINDINGS: Breast Density: SCATTERED The breast parenchyma shows scattered fibroglandular densities. Breast parenchyma level B Informed consent was obtained and an appropriate procedural pause observed. Using standard sterile technique, ultrasound guidance and local anesthesia, multiple spring-loaded core biopsy samples of the 7 mm round hypoechoic mass in the medial right breast were obtained at the 3:30 o'clock position 2 cm from the nipple and a biopsy marker was deployed at the biopsy site. Stasis was assured with direct breast compression for 7 minutes and a postprocedure right diagnostic mammogram was obtained. Post procedure mammogram shows satisfactory deployment of an S shaped biopsy marker at the superficial surface of the round mass in the medial right breast. CC and ML views of the right breast were obtained with 2-D technique. IMPRESSION: Successful ultrasound-guided core needle biopsy of the round mass in the medial right breast and biopsy marker deployment. No apparent complications. Pathology results are pending. An addendum can be issued once pathology results become available.
== END ==
LOC: US 08:22 → MERGE 08:22
PROVIDERS: ATTEND Nurse Practitioner Family
DX: N63.10 Unspecified lump in the right breast, unspecified quadrant (principal); D24.1 Benign neoplasm of right breast
CPT/HCPCS: 19083; 77065; 88305; C1713; 19081; 76942

== ENCOUNTER 2020-07-10 14:50 | Emergency (ER) | payer SELFPAY ==
[~2020-07-10] VITALS: Ht 167.6 cm; Wt 86.6 kg
[~2020-07-10 14:50] MED LIST changes: -LISI1TAB19 PO; +LISI1TAB37 PO; -OMEP40CA45 PO; +OMEP40CA7 PO
[2020-07-10 15:20] VITALS: BP 111/77
[2020-07-10 15:34] LABS: BILIRUBIN,URINE NEGATIVE (NEG); CLARITY,URINE CLEAR; COLOR,URINE YELLOW; NITRITE,URINE NEGATIVE (NEG); PROTEIN,URINE NEGATIVE (NEG-TRACE); UROBILINOGEN,URINE 0.2 mg/dL (0.2 mg/dL)
[2020-07-10 15:49] LABS: BACTERIA,URINE 0 /HPF (0-FEW); RBC,URINE 0 /HPF (0-2); WBC,URINE 0 /HPF (0-4)
[2020-07-10] MEDS ORDERED: diazePAM 5 MG TABLET PO ONE (16:00)
[2020-07-10] MEDS ORDERED: KETOROLAC 30 MG/ML VIAL. IM ONE (16:00)
--- NOTE | 2020-07-10 16:41 | RAD ---
Single view pelvis and single view bilateral sacrum dated 07/10/2020. No comparison available. Clinical data indication: Pain. FINDINGS: AP view pelvis and oblique views of the sacrum shows normal bony alignment. No displaced fracture. Pe lvic ring is intact. Mild hypertrophic change of the bilateral SI joint and pubic symphysis. No perio stitis or bone destruction. There is mild spondylotic changes the lower lumbar spine. IMPRESSION: No acute findings. Electronically signed by: Sonido Alvarado MD (07/10/2020 4:38 PM) [id number]
[2020-07-10] MEDS ORDERED: CYCL5TAB PO (17:10)
--- NOTE | 2020-07-10 17:11 | PHYS DOC ---
Past Medical History Past Medical History: GERD, Hypertension, Other Additional Past Medical Histor: Coleman's esophagus Past Surgical History: , Other Additional Past Surgical Histo: biliary duct removal Smoking Status: Never Smoker Alcohol Use: None Drug Use: None General Adult EDM: Chief Complaint: BACK PAIN - NO INJURY HPI: HPI: 45-year-old female who denies any significant past medical history presents the ED with (patient consents to his/her/their knowledge and involvement in pts' medical care), complaints of bilateral lower back pain that started approximately 3 days ago, described as sharp, constant and nonradiating, cannot recall any specific event. Has not taken any medication for the pain. No prior h/o similar sxs. Denies any blunt trauma or increased heavy lifting. Not currently employed. Denies any history of trauma, history of IV drug use, history of cancer, history of sciatica, history of malignancy, history of immunocompromise state, neurologic complaints including saddle anesthesia, we akness or paresthesias, urinary retention, bowel or bladder incontinence, night pain, fever/chills/night sweats, unexplained weight loss, anticoagulants or coagulopathy, prolonged steroid use, older age, presence of contusions or abrasions. Review of Systems: Review of Systems: Constitutional: Denies fever or chills. [] Eyes: Denies change in visual acuity. [] HENT: Denies nasal congestion or sore throat. [] Respiratory: Denies cough or shortness of breath. [] Cardiovascular: Denies chest pain or edema. [] GI: Denies abdominal pain, nausea, vomiting, bloody stools or diarrhea. [] : Denies dysuria or vaginal bleeding Musculoskeletal: Denies saddle anesthesia or joint pain Integument: Denies rash or diaphoresis Neurologic: Denies headache, neck pain, focal weakness or sensory changes. [] Endocrine: Denies polyuria or polydipsia. [] Lymphatic: Denies swollen glands. [] Psychiatric: Denies depression or anxiety. [] Heart Score: C/O Chest Pain: No Risk Factors: Risk Factors: DM, Current or recent (<one month) smoker, HTN, HLP, family history of CAD, obesity. Risk Scores: Score 0 - 3: 2.5% MACE over next 6 weeks - Discharge Home Score 4 - 6: 20.3% MACE over next 6 weeks - Admit for Clinical Observation Score 7 - 10: 72.7% MACE over next 6 weeks - Early Invasive Strategies Current Medications: Current Medications Medications (Trade) Dose Ordered Sig/[facility] Start Time Stop Time Status Last Admin Dose Admin Diazepam (Valium) 5 mg 1X ONCE 07/10/20 16:00 07/10/20 16:01 DC 07/10/20 16:08 5 MG Ketorolac Tromethamine (Toradol 30mg Vial) 30 mg 1X ONCE 07/10/20 16:00 07/10/20 16:01 DC 07/10/20 16:08 30 MG Allergies: Allergies: Allergies Coded Allergies Type Severity Reaction Last Updated Verified Penicillins Allergy Intermediate WELTS/ITCHY 12/14/16 Yes Sulfa (Sulfonamide Antibiotics) Allergy Intermediate COULD NOT BREATH 12/14/16 Yes amoxicillin Allergy Intermediate 04/06/17 Yes Physical Exam: PE: Constitutional: Well developed, well nourished, no acute distress, non-toxic appearance. HENT: Normocephalic, atraumatic, Eyes: EOMI, conjunctiva normal, no discharge. Neck: Normal range of motion, supple, Cardiovascular: S1/2 present, regular rhythm Lungs & Thorax: Speaking in full sentences, bilateral equal chest rise, no tachypnea or increased work of breathing Abdomen: soft, no tenderness, Skin: Warm, dry, no erythema, no rash. [] Back: No midline step offs or tenderness, no CVA tenderness, pain located over both SI joints Extremities: No tenderness, no cyanosis, no lower extremity edema Neurologic: Alert and oriented X 3, normal motor function, normal sensory function, no focal deficits noted, antalgic gait Psychologic: Affect normal, judgement normal, mood normal. [] Current Patient Data: Labs: Laboratory Tests Test 07/10/20 15:15 07/10/20 15:33 Urine Collection Type Unknown Urine Color Yellow Urine Clarity Clear Urine pH 7.0 (<5.0-8.0) Urine Specific [place] 1.010 (1.000-1.030) Urine Protein Negative mg/dL (NEG-TRACE) Urine Glucose (UA) Negative mg/dL (NEG) Urine Ketones (Stick) Negative mg/dL (NEG) Urine Blood Negative (NEG) Urine Nitrite Negative (NEG) Urine Bilirubin Negative (NEG) Urine Urobilinogen Dipstick 0.2 mg/dL (0.2 mg/dL) Urine Leukocyte Esterase Negative (NEG) Urine RBC 0 /HPF (0-2) Urine WBC 0 /HPF (0-4) Urine Squamous Epithelial Cells Few /LPF Urine Bacteria 0 /HPF (0-FEW) POC Urine HCG, Qualitative Hcg negative (Negative) Vital Signs: Vital Signs Date Time Temp Pulse Resp B/P (MAP) Pulse Ox O2 Delivery O2 Flow Rate FiO2 07/10/20 15:20 98.6 95 16 111/77 (88) 96 Room Air 98.6 EKG: EKG: [] Radiology/Procedures: Radiology/Procedures: IMAGING REPORT Signed PATIENT: JC QUINNACCOUNT: [id number] : 1975 LOCATION: ER AGE: 45 SEX: F EXAM STATUS: REG ER ORD. PHYSICIAN: DEXTER REYES DO REASON: bl si joint pain PROCEDURE: SACROILIAC JOINTS 3V Single view pelvis and single view bilateral sacrum dated 07/10/2020. No comparison available. Clinical data indication: Pain. FINDINGS: AP view pelvis and oblique views of the sacrum shows normal bony alignment. No displaced fracture. Pelvic ring is intact. Mild hypertrophic change of the bilateral SI joint and pubic symphysis. No periostitis or bone destruction. There is mild spondylotic changes the lower lumbar spine. IMPRESSION: No acute findings. Electronically signed by: Sonido Alvarado MD (07/10/2020 4:38 PM) [id number] DICTATED and SIGNED BY: SONIDO ALVARADO MD DATE: 07/10/20 [id number] 0 Course & Med Decision Making: Course & Med Decision Making Pertinent Labs and Imaging studies reviewed. (See chart for details) Concern for atraumatic bilateral SI joint pain in obese female. Significant pain relief w/muscle relaxer in the ED. Will discharge home with strict ED return precautions were given for saddle anesthesia, urinary or bowel retention or incontinence, neurologic deficits, weakness or sensory deficits. Encouraged urgent outpatient follow-up with PMD and Ortho for definitive management. Life- threatening processes were considered but are low suspicion at this time, given history, physical exam and ED workup. Pt was educated on all prescription medications and adverse effects. All patient's questions were answered and pt was stable at time of discharge. Life/limb-threatening differential includes but is not limited to, aortic dissection/aneurysm, cauda equina syndrome, transverse myelitis, spinal cord/epidural compression syndromes, discitis, spinal stenosis, epidural abscess or hematoma, osteomyelitis, disc herniation, surgical abdomen, stable or unstable fracture, renal/ureteral colic, sepsis, meningitis, musculoskeletal injury, traumatic injury, intraabdominal/retroperitoneal or pelvic bleeding. I spoken with the patient and her caregivers. I explained the patient's condition, diagnoses and treatment plan based on the information available to me at this time. I have answered the patient and her caregiver's questions and addressed any concerns. The patient and her caregivers have a good understanding of patient's diagnosis, condition and treatment plan as can be expected at this point. Vital signs have been stable. Patient's condition is stable and appropriate for discharge from the emergency department. Patient will pursue further outpatient evaluation with primary care physician or other designated or consulting physician as outlined in the discharge instructions. The patient and/or caregivers are agreeable to this plan of care and follow-up instructions have been explained in detail. The patient and/or caregivers have received these instructions in written form and have expressed an understanding of the discharge instructions. The patient and/or caregivers are aware that any significant change of condition or worsening of symptoms should prompt immediate return to this or the closest emergency department or call to 911. Jimmy Disclaimer: Jimmy Disclaimer: This electronic medical record was generated, in whole or in part, using a voice recognition dictation system. Departure Departure Impression: Primary Impression: Lower back pain Disposition: 01 HOME / SELF CARE / HOMELESS Condition: STABLE Referrals: VERA CRAFT DO (PCP) In 24 to 48 hours for reevaluation Patient Instructions: Back Pain, Adult, RICE - Routine Care for Injuries Additional Instructions: FOR DEFINITIVE MANAGEMENT OF BACK PAIN: FOLLOW UP WITH ORTHOPEDICS: Orthopaedic Sports Medicine Orthopaedic Surgery [facility] [address] [facility], [facility] [address] [place] [address] OR [facility] [address] [place] [address] OR FOLLOW UP WITH NEUROSURGERY: Neurological [facility] [address] [facility], [place] [address] [id number] EMERGENCY DEPARTMENT GENERAL DISCHARGE INSTRUCTIONS Thank you for coming to [facility] Emergency Department (ED) today and trusting us with you care. We trust that you had a positive experience in our Emergency Department. If you wish to speak to the department management, you may call the Director at [phone]. YOUR FOLLOW UP INSTRUCTIONS ARE FOLLOWS: 1. Do you have a private Doctor? If you do not have a private doctor, please ask for a resource list of physicians or clinics that may be able to assist you with follow up care. 2. The Emergency Physicain has interpreted your x-rays. The X-Ray specialist will also review them. If there is a change in the findings, you will be notified in 48 hours when at all possible. 3. A lab test or culture has been done, your results will be reviewed and you will be notified if you need a change in treatment. ADDITIONAL INSTRUCTIONS AND INFORMATION: 1. Your care today has been supervised by a physician who is specially trained in emergency care. Many problems require more than one evaluation for a complete diagnosis and treatment. We recommend that you schedule your follow up appointment as recommended to ensure complete treatment of you illness or injury. If you are unable to obtain follow up care and continue to have a problem, or if your condition worsens, we recommend that you return to the ED. 2. We are not able to safely determine your condition over the phone nor are we able to give sound medical advice over the phone. For these safety reasons, if you call for medical advice we will ask you to come to the ED for further evaluation. 3. If you have any questions regarding these discharge instructions please call the ED at [phone]. SAFETY INFORMATION: In the interest of safety, wellness, and injury prevention; we encourage you to wear your sealbelt, if you smoke; quite smoking, and we encourage family to use a protective helmet for bicycling and other sporting events that present an increased risk for head injury. IF YOUR SYMPTOMS WORSEN OR NEW SYMPTOMS DEVELOP, OR YOU HAVE CONCERNS ABOUT YOUR CONDITION; OR IF YOUR CONDITION WORSENS WHILE YOU ARE WAITING FOR YOUR FOLLOW UP APPOINTMENT; EITHER CONTACT YOUR PRIMARY CARE DOCTOR, THE PHYSICIAN WHOSE NAME AND NUMBER YOU WERE GIVEN, OR RETURN TO THE ED IMMEDIATELY. Scripts Cyclobenzaprine Hcl (CYCLOBENZAPRINE HCL) 5 Mg Tablet 1 TAB PO TID PRN for PAIN for 7 Days, #21 TAB Prov: DEXTER REYES DO 07/10/20 DEXTER REYES DO Jul 10, 2020 17:11
== END 2020-07-10 17:36 | disposition home or self-care (01) ==
LOC: ER 14:50
DX: M54.5 Low back pain (principal); K21.9 Gastro-esophageal reflux disease without esophagitis; I10 Essential (primary) hypertension; Z88.0 Allergy status to penicillin; Z88.1 Allergy status to other antibiotic agents; Z88.2 Allergy status to sulfonamides
CPT/HCPCS: 72202; 81001; 81025; 96372; 99284; J1885

== ENCOUNTER 2021-04-08 02:34 | Emergency (ER) | payer SELFPAY ==
[~2021-04-08] VITALS: Ht 165.1 cm; Wt 81.8 kg
[~2021-04-08 02:34] MED LIST changes: +CYCL5TAB PO; -MOME17SP NS; +MOME17SP5 NS
[2021-04-08] MEDS ORDERED: KETOROLAC 60 MG/2 ML VIAL. IM ONE (03:45)
[2021-04-08] MEDS ORDERED: DEXAMETHASONE 4 MG TABLET PO ONE (03:45)
[2021-04-08] MEDS ORDERED: METHOCARBAMOL 750 MG TABLET PO ONE (03:45)
[2021-04-08] MEDS ORDERED: oxyCODONE/APAP 5/325 1 TAB TABLET PO ONE (06:00)
--- NOTE | 2021-04-08 06:41 | RAD ---
EXAM: CT cervical spine without contrast INDICATION: Pain COMPARISON: None TECHNIQUE: Axial CT imaging through cervical spine without intravenous contrast. Sagittal and coronal reformats were obtained. One or more of the following individualized dose reduction techniques were utilized for this examinat ion: 1. Automated exposure control 2. Adjustment of the mA and/or kV according to patient size 3. Use of iterative reconstruction technique. FINDINGS: No acute fracture. Alignment is normal. There is straightening of lordosis. Mild disc space narrowing with small anterior osteophytes at C4-C5 and C5-6. There is ossification of the posterior longitudin al ligament extending along C4 and C5. This results in likely moderate canal narrowing, greater on th e right. Mild bilateral foraminal narrowing at C4-C5 and on the right at C5-C6 due to uncovertebral j oint proliferation. Prevertebral soft tissues normal. IMPRESSION: 1. No acute osseous abnormality cervical spine. 2. 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 Electronically signed by: Rhona Hurley MD (04/08/2021 6:38 AM) [facility]
[2021-04-08] MEDS ORDERED: GABA-585 PO (07:04)
[2021-04-08] MEDS ORDERED: METH-562 PO (07:04)
[2021-04-08] MEDS ORDERED: MELO15TA23 PO (07:04)
[2021-04-08] MEDS ORDERED: METH4TAB2 PO (07:04)
--- NOTE | 2021-04-08 07:07 | ED.ADGEN ---
Past Medical History Past Medical History: GERD, Hypertension, Other Additional Past Medical Histor: Coleman's esophagus Past Surgical History: , Other Additional Past Surgical Histo: biliary duct removal Smoking Status: Never Smoker Alcohol Use: None Drug Use: None General Adult EDM: Chief Complaint: UPPER EXTREMITY PAIN HPI: HPI: Patient is a 45-year-old female who presents to the emergency room complaining of left-sided neck pain that radiates into her shoulder and arm. This started 3 days ago and has been progressively getting worse. Pain is been constant. She states it feels like sharp shooting pain. Denies any trauma. Denies any chest pain, shortness of breath, URI symptoms. She has never had anything like this previously. Review of Systems: Review of Systems: Complete ROS is negative unless otherwise documented in HPI Current Medications: Current Medications Medications (Trade) Dose Ordered Sig/[facility] Start Time Stop Time Status Last Admin Dose Admin Dexamethasone (Decadron) 10 mg 1X ONCE 04/08/21 03:45 04/08/21 03:46 DC 04/08/21 04:15 10 MG Ketorolac Tromethamine (Toradol Im) 60 mg 1X ONCE 04/08/21 03:45 04/08/21 03:46 DC 04/08/21 04:15 60 MG Methocarbamol (Robaxin) 750 mg 1X ONCE 04/08/21 03:45 04/08/21 03:46 DC 04/08/21 04:15 750 MG Oxycodone/ Acetaminophen (Percocet 5/325) 1 tab 1X ONCE 04/08/21 06:00 04/08/21 06:01 DC 04/08/21 06:54 1 TAB Allergies: Allergies: Allergies Coded Allergies Type Severity Reaction Last Updated Verified Sulfa (Sulfonamide Antibiotics) Allergy Severe COULD NOT BREATHE 04/08/21 Yes Penicillins Allergy Intermediate WELTS/ITCHY 12/14/16 Yes amoxicillin Allergy Intermediate 04/06/17 Yes Physical Exam: PE: General: Awake, alert, NAD. Well Nourished, well hydrated. Cooperative HEENT: Atraumatic, EOMI, PERRL, airway patent, moist oral mucosa Neck: Supple, trachea midline, L sided neck tenderness, no midline tenderness Respiratory: CTA bilaterally, normal effort, no wheezing/crackles CV: RRR, no murmur, cap refill <2 GI: Soft, nondistended, nontender, no masses MSK: No obvious deformities Skin: Warm, dry, intact Neuro: A&O x3, speech NL, sensory and motor grossly intact, no focal deficits Psych: Normal affect, normal mood, not suicidal or homicidal Current Patient Data: Labs: Laboratory Tests Test 04/08/21 03:05 POC Urine HCG, Qualitative Hcg negative (Negative) Vital Signs: Vital Signs Date Time Temp Pulse Resp B/P (MAP) Pulse Ox O2 Delivery O2 Flow Rate FiO2 04/08/21 06:54 18 100 Room Air 04/08/21 02:52 98.0 102 125/76 (92) 98.0 EKG: EKG: [] Heart Score: C/O Chest Pain: N/A Risk Factors: Risk Factors: DM, Current or recent (<one month) smoker, HTN, HLP, family history of CAD, obesity. Risk Scores: Score 0 - 3: 2.5% MACE over next 6 weeks - Discharge Home Score 4 - 6: 20.3% MACE over next 6 weeks - Admit for Clinical Observation Score 7 - 10: 72.7% MACE over next 6 weeks - Early Invasive Strategies Radiology/Procedures: Radiology/Procedures: [] Course & Med Decision Making: Course & Med Decision Making Pertinent Labs and Imaging studies reviewed. (See chart for details) Patient is a 45 year old female who presents to the Emergency Room complaining of L sided neck pain with radiation consistent with cervical radiculopathy. Patient does not have any chest pain, SOB, URI symptoms that was suggest other pathology. She has no fever or history of IV drug abuse. CT cervical spine is negative for mass or pathology requiring emergent care. Patient's test results and vitals while in the ED were fully reviewed and discussed with the patient. Patient is stable and at this time does not need admission to the hospital. We have discussed strict return precautions and the importance of following up with their Primary Care Physician. Patient stated understanding and was given an opportunity to ask any questions. Patient is in agreement with plan. Dragon Disclaimer: Dragon Disclaimer: This electronic medical record was generated, in whole or in part, using a voice recognition dictation system. Departure Departure Impression: Primary Impression: Cervical radiculopathy Disposition: HOME / SELF CARE / HOMELESS Condition: STABLE Referrals: VERA CRAFT DO (PCP) Patient Instructions: Cervical Radiculopathy Scripts Meloxicam (MELOXICAM) 15 Mg Tablet 1 TAB PO DAILY for 30 Days, #30 TAB 0 Refills Prov: KALEIGH RAI MD 04/08/21 Methocarbamol (METHOCARBAMOL) 750 Mg Tablet 750 MG PO QID PRN for PAIN, #30 TAB Prov: KALEIGH RAI MD 04/08/21 Methylprednisolone (MEDROL) 4 Mg Tab.ds.pk 1 PKG PO UD for inflammation, #1 PKG Prov: KALEIGH RAI MD 04/08/21 Gabapentin (GABAPENTIN ) 100 Mg Capsule 100 MG PO TID for NEUROGENIC PAIN for 30 Days, #90 CAP Prov: KALEIGH RAI MD 04/08/21 KALEIGH RAI MD Apr 08, 2021 07:07
[2021-04-08 07:36] VITALS: BP 126/80
== END 2021-04-08 07:38 | disposition home or self-care (01) ==
LOC: ER 02:34
DX: M54.12 Radiculopathy, cervical region (principal); K21.9 Gastro-esophageal reflux disease without esophagitis; I10 Essential (primary) hypertension
CPT/HCPCS: 72125; 81025; 96372; 99284; J1885